=== PATIENT | male | born 1990 | race Caucasian/White ===

== ENCOUNTER 2021-03-27 08:31 | Emergency (ER) | payer BC ==
[~2021-03-27] VITALS: Ht 177.8 cm; Wt 104.3 kg
--- OUTSIDE RECORDS SUMMARY | 2021-03-27 08:40 | XMS ---
PreManage Notification: YURIY HATHAWAY Security [employer] Events No recent Security Events currently on file CRITERIA MET - [facility] - 2 Visits in 30 Days CARE PROVIDERS There are no care providers on record at this time. Margarito has no Care Guidelines for this patient. [facility]ox[facility] V[facility] (12 [address] [facility] NOTE: Visits indicate total known visits. ED/C VISIT TRACKING (12 MO.) 03/27/2021 08:33 [facility] TYPE: Emergency COMPLAINT: - R SIDE LOWER BACK/ABDOMINAL PAIN 03/25/2021 13:[address] [facility] TYPE: Emergency COMPLAINT: - LOWER BACK PAIN,NAUSEA INPATIENT VISIT TRACKING (12 MO.) No inpatient visits to display in this time frame [email or web address]
[2021-03-27] MEDS ORDERED: DULOXETINE HCL60 MG PO (08:49)
[2021-03-27] MEDS ORDERED: IBU-200200 MG PO (08:50)
[2021-03-27] MEDS ORDERED: NAPROSYN500 MG PO (11:42)
[2021-03-27] MEDS ORDERED: LIDODERM1 EACH TD (11:42)
== END 2021-03-27 12:19 | disposition home or self-care (01) ==
LOC: ED 08:31
DX: S29.011A Strain of muscle and tendon of front wall of thorax, initial encounter (principal); F17.220 Nicotine dependence, chewing tobacco, uncomplicated; Z79.899 Other long term (current) drug therapy; X50.9XXA Other and unspecified overexertion or strenuous movements or postures, initial encounter
CPT/HCPCS: 71046; 81001; 96372; 99284-25; J1885

== ENCOUNTER 2025-01-13 19:54 | Emergency (ER) | payer BC ==
[~2025-01-13] VITALS: Ht 177.8 cm; Wt 140.2 kg
[~2025-01-13 19:54] MED LIST: DULOXETINE HCL60 MG PO; IBU-200200 MG PO; LIDODERM1 EACH TD; NAPROSYN500 MG PO
[2025-01-13] MEDS ORDERED: BUPROPION XL150 MG PO (20:43)
[2025-01-13] MEDS ORDERED: SODIUM CHLORIDE 0.9% 1,000 ML IV ONE (20:45)
[2025-01-13] MEDS ORDERED: MORPHINE SULFATE 4 MG/ML VIAL IV ONE (20:45)
[2025-01-13 20:55] LABS: BASOPHILS 0.4 % (0.2-1.2); EOSINOPHILS 0.5 % (0.8-7.0); LYMPHOCYTES 10.8 % (21.8-53.1); MCH 31.7 PG (25.7-32.2); MCHC 36.0 g/dL (32.3-36.5); MCV 88.0 fL (79.0-92.2); MONOCYTES 10.3 % (5.3-12.2); NEUTROPHILS 77.7 % (34.0-67.9); RBC 5.68 M/uL (4.63-6.08)
[2025-01-13 21:18] LABS: ALT (SGPT) 47.0 U/L (14-59); AST (SGOT) 14.0 U/L (15-37); GLOMERULAR FILTRATION RATE,EST 119.0 mL/min (>60); PROTEIN, TOTAL 8.5 g/dL (6.4-8.2); UREA NITROGEN 20.0 mg/dL (7-18)
[2025-01-13] MEDS ORDERED: SUCRALFATE 1 GM TAB PO ONE (22:45)
[2025-01-13] MEDS ORDERED: LIDOCAINE & ANTACID 35 ML BTL PO ONE (22:45)
[2025-01-13] MEDS ORDERED: PANTOPRAZOLE SODIUM 40 MG/10 ML VIAL IV ONE (22:45)
[2025-01-13] MEDS ORDERED: HYDROmorphone HCL 1 MG/ML SYR IV PRN (22:45)
[2025-01-13 22:55] LABS: BLOOD/HGB, URINE NEGATIVE (Negative); KETONE, URINE SMALL (Negative); LEUK ESTERASE, URINE NEGATIVE (negative); NITRITE, URINE NEGATIVE (negative)
[2025-01-13 23:00] LABS: EPITHELIAL CELLS, URINE SQUAMOUS 1+ /lpf (0-1+)
[2025-01-13 23:01] LABS: BACTERIA, URINE RARE /hpf (negative); CASTS, URINE NONE SEEN \\lpf; CRYSTALS, URINE NONE SEEN (0-1+); REFLEX CULTURE, URINE No (No)
[2025-01-13] MEDS ORDERED: CARAFATE1 GM PO (23:27)
[2025-01-13] MEDS ORDERED: PROTONIX40 MG PO (23:27)
[2025-01-13] MEDS ORDERED: ONDANSETRON ODT8 MG PO (23:31)
[2025-01-13] MEDS ORDERED: HYDROCODON-ACE1 EA10 PO (23:31)
[2025-01-13] MEDS ORDERED: ONDANSETRON 4 MG HOME.PACK SL ONE (23:45)
[2025-01-13] MEDS ORDERED: HYDROCODONE BIT/ACETAMINOPHEN 5/325 MG 1 TAB HOME.PACK PO ONE (23:45)
[2025-01-14 00:28] VITALS: BP 148/86
--- NOTE | 2025-01-14 22:13 | EKG ---
[facility] [address] [place] [id number] Signed Sinus bradycardia Possible Left atrial enlargement Borderline ECG No previous ECGs available Confirmed by Thea Bal MD () on 01/14/2025 10:12:52 PM Electronically Signed By: THEA BAL MD 01/14/25 2213 PATIENT NAME: YURIY HATHAWAY Electrocardiogram DATE OF : 88 PHYSICIAN: THEA BAL MD REPORT #: [id number] REPORT IS CONFIDENTIAL AND NOT TO BE RELEASED WITHOUT AUTHORIZATION
== END 2025-01-14 00:30 | disposition home or self-care (01) ==
LOC: ED 19:54
PROVIDERS: Family Medicine
DX: K29.70 Gastritis, unspecified, without bleeding (principal); Z79.899 Other long term (current) drug therapy
CPT/HCPCS: 36415; 74177; 80053; 81001; 83690; 84484; 85025; 93005; 93010; 96361; 96374; 96375; 99284-25; A9270; J1171; J2270; J2405; J2470; J7030; Q9967